=== PATIENT | female | born 1995 | race Native Hawaiian/Other Pacific Islander ===

== ENCOUNTER 2019-04-05 15:34 | Emergency (ER) | payer OTHER ==
[~2019-04-05] VITALS: Ht 162.6 cm; Wt 56.7 kg
[2019-04-05 15:43] VITALS: BP 126/75
[2019-04-05] MEDS ORDERED: PREN-96 PO (17:52)
== END 2019-04-05 17:03 | disposition still patient (30) ==
LOC: ER 15:41
DX: O46.93 Antepartum hemorrhage, unspecified, third trimester (principal); Z3A.31 31 weeks gestation of pregnancy
CPT/HCPCS: 76815